=== PATIENT | male | born 1960 | race Caucasian/White ===

== ENCOUNTER 2021-04-24 07:19 | Day surgery (SDC) | payer MEDICAID, SELFPAY ==
[~2021-04-24] VITALS: Ht 177.8 cm; Wt 79.4 kg
[2021-04-24] MEDS ORDERED: MIDAZOLAM HCL 5 MG/5 ML VIAL ONE ×2 (08:36→10:49)
[2021-04-24] MEDS ORDERED: SIMETHICONE 40 MG/0.6 ML ML ONE (08:36)
[2021-04-24] MEDS ORDERED: fentaNYL CITRATE/PF 100 MCG/2 ML AMP ONE (08:36)
[2021-04-24] MEDS ORDERED: MEPERIDINE 100 MG INJ. 100 MG/ML VIAL ONE (10:41)
[2021-04-24] MEDS ORDERED: EPINEPHrine JECT 0.1 MG/ML SYR ONE (13:15)
[2021-04-24 15:01] VITALS: BP_SYST 139
== END 2021-04-24 12:25 | disposition home or self-care (01) ==
LOC: SDS 07:19 → SMU 07:21 → SDS 12:25
PROVIDERS: ATTEND Internal Medicine Gastroenterology
DX: K92.1 Melena (principal); D12.2 Benign neoplasm of ascending colon; D12.3 Benign neoplasm of transverse colon; K62.1 Rectal polyp; K64.4 Residual hemorrhoidal skin tags; Z80.0 Family history of malignant neoplasm of digestive organs; I10 Essential (primary) hypertension; E11.9 Type 2 diabetes mellitus without complications; E78.00 Pure hypercholesterolemia, unspecified; Z87.891 Personal history of nicotine dependence; Z79.84 Long term (current) use of oral hypoglycemic drugs; Z79.899 Other long term (current) drug therapy; Z20.822 Contact with and (suspected) exposure to COVID-19
CPT/HCPCS: 45381; 45385; 82962; 88305; 99152; 99153; G0378; J0171; J2175; J2250; U0003; 45384; J3010

== ENCOUNTER 2021-08-03 09:10 | Inpatient (IN) | payer MEDICAID, SELFPAY ==
[2021-08-02 07:57] LABS: BASOPHILS % (AUTO) 0.5 % (0.0-2.0); EOSINOPHILS # (AUTO) 0.2 K/uL (0.0-0.4); HEMATOCRIT 41.5 % (36-54); HEMOGLOBIN 13.8 g/dL (14.0-18.0); LYMPHOCYTES # (AUTO) 1.8 K/uL (1.0-5.5); LYMPHOCYTES % (AUTO) 21.7 % (20.5-51.5); MEAN CORPUSCULAR HEMOGLOBIN 28 pg (27-31); MEAN CORPUSCULAR HGB CONC 33 % (32-36); MEAN CORPUSCULAR VOLUME 84 fL (79.0-98.0); MONOCYTES # (AUTO) 0.7 K/uL (0.0-1.0); MONOCYTES % (AUTO) 8.8 % (1.7-9.3); NEUTROPHILS # (AUTO) 5.4 K/uL (1.8-7.7); PLATELET COUNT (AUTO) 119 K/uL (130-430); RED BLOOD CELL COUNT(AUTO) 4.93 MIL/uL (4.2-6.2); RED CELL DISTRIBUTION WIDTH 15.6 % (9.0-15.0); WHITE BLOOD COUNT (AUTO) 8.2 K/uL (4.8-10.8)
[2021-08-02 08:36] LABS: CREATININE 1.09 mg/dL (0.55-1.30); POTASSIUM 4.3 mmol/L (3.5-5.1)
[~2021-08-03] VITALS: Ht 177.8 cm; Wt 124.7 kg
[2021-08-03] MEDS ORDERED: BUPIVACAINE LIPOSOME/PF 266 MG/20 ML VIAL INFIL ONE (12:55)
[2021-08-03] MEDS ORDERED: LISI10TA29 PO (14:00)
[2021-08-03] MEDS ORDERED: METF-518 PO (14:00)
[2021-08-03] MEDS ORDERED: GLIP5TAB26 PO (14:01)
[2021-08-03] MEDS ORDERED: LIP20 PO (14:02)
[2021-08-03] MEDS ORDERED: metroNIDAZOLE 500 mg/NS 100 ML IV ONE (14:30)
[2021-08-03] MEDS ORDERED: LEVOFLOXACIN IN DEXTROSE 5 % 100 ML IV ONE (14:30)
[2021-08-03] MEDS ORDERED: CEFAZOLIN 2 GM IVPB PREMIX 50 ML IV ONE (14:30)
[2021-08-03] MEDS ORDERED: fentaNYL CITRATE/PF 100 MCG/2 ML AMP IVP PRN (15:30)
[2021-08-03] MEDS ORDERED: METOCLOPRAMIDE HCL 10 MG/2 ML VIAL IVP PRN (15:30)
[2021-08-03] MEDS ORDERED: ONDANSETRON HCL 4 MG/2 ML VIAL IVP PRN ×2 (15:30→19:00)
[2021-08-03] MEDS ORDERED: PROPOFOL 200MG/ 20ML VIAL (DIPRIVAN) IV ONE (19:05)
[2021-08-03] MEDS ORDERED: INDIGOTINDISULFONATE SODIUM ONE (19:05)
[2021-08-03] MEDS ORDERED: SEVOFLURANE 15 MIN GAS INH ONE (19:05)
[2021-08-03] MEDS ORDERED: HYDROmorphone 2 MG/ML VIAL ONE (19:05)
[2021-08-03] MEDS ORDERED: ROCURONIUM BROMIDE 10 MG/ML (ZEMURON) ONE (19:05)
[2021-08-03] MEDS ORDERED: LR 1,000 ML IV.SOLN IV ONE (19:05)
[2021-08-03] MEDS ORDERED: SUCCINYLCHOLINE CHLORIDE 20 MG/ML(QUELICIN) ONE (19:05)
[2021-08-03] MEDS ORDERED: fentaNYL CITRATE/PF 100 MCG/2 ML AMP ONE ×2 (19:09→19:48)
[2021-08-03] MEDS: fentaNYL CITRATE/PF 100 MCG/2 ML AMP IVP PRN ×3 (19:13→19:48)
[2021-08-03] MEDS: GABAPENTIN 300 MG CAPSULE PO SCH (21:06)
[2021-08-03] MEDS: ACETAMINOPHEN 500 MG TABLET PO SCH (21:07)
[2021-08-03] MEDS: metroNIDAZOLE 500 mg/NS 100 ML IV SCH (21:07)
[2021-08-03] MEDS: ceFAZolin SODIUM 1 GM in D5W 50 ML IV SCH (21:28)
[2021-08-03 21:47] VITALS: BP_SYST 123
[2021-08-03] MEDS: HYDROmorphone 1 MG/ML INJ. CARTRIDGE IVP PRN (21:53)
[2021-08-04 00:22] VITALS: BP_SYST 110
[2021-08-04] MEDS: HYDROmorphone 1 MG/ML INJ. CARTRIDGE IVP PRN ×3 (02:09→15:52)
--- NOTE | 2021-08-04 03:18 | NUR ---
Admission Note Received patient with diagnosis of POLYP OF COLON. Initial Plan of Care discussed-patient verbalized understanding. at bedside. Oriented to room, call light, pain management and safety.
[2021-08-04] MEDS: ceFAZolin SODIUM 1 GM in D5W 50 ML IV SCH ×3 (06:11→13:41)
[2021-08-04] MEDS: metroNIDAZOLE 500 mg/NS 100 ML IV SCH ×3 (06:12→22:23)
[2021-08-04] MEDS: ACETAMINOPHEN 500 MG TABLET PO SCH ×3 (06:13→17:09)
--- NOTE | 2021-08-04 07:15 | NUR ---
DR YEPEZ WANTS MCLEAN OUT DESPITE ORDERS OF REMOVAL AT 0900 Dr. Yepez visited patient and wanted ALIVIA drain removed now. Dr. Yepez said he wanted it removed at 0600. Dr. Yepez was corrected by ARMANDO Pablo ordered specified 0900. Dr. Yepez disagreed. States to remove at 0600. Will remove.
--- NOTE | 2021-08-04 07:30 | NUR ---
Dr. Nguyễn here to see patient. Order to dc pham catheter, insulin sliding scale and resume home meds except diabetic meds. PT is awake alert and oriented x4, vs stable, nsr on tele, no acute distress noted. Assuming care for pt.
--- NOTE | 2021-08-04 07:58 | NUR ---
MCLEAN CATH REMOVED AT THIS TIME. ALIVIA drain emptied.
[2021-08-04 08:00] VITALS: BP_SYST 124
--- NOTE | 2021-08-04 08:00 | NUR ---
CLOSING NOTES Patient resting in bed - no s/s pain or distress noted. Respirations even and unlabored - head of bed elevated. IV site patent - no s/ s redness, infection, or infiltration. Bed locked and in lowest position. Call light within reach - bed alarm on.
[2021-08-04] MEDS: HYDROcodone/ACETAMIN 5-325 MG TAB (NORCO/ VICODIN) PO PRN ×3 (09:09→21:07)
[2021-08-04] MEDS: GABAPENTIN 300 MG CAPSULE PO SCH ×3 (09:09→21:05)
[2021-08-04] MEDS: ENOXAPARIN SODIUM 40 MG/0.4 ML SYRINGE SUBCUT SCH (09:10)
[2021-08-04 09:16] LABS: BASOPHILS % (AUTO) 0.2 % (0.0-2.0); EOSINOPHILS % (AUTO) 0.3 % (0.0-4.0); HEMATOCRIT 38.4 % (36-54); LYMPHOCYTES # (AUTO) 1.2 K/uL (1.0-5.5); LYMPHOCYTES % (AUTO) 12.4 % (20.5-51.5); MEAN CORPUSCULAR HEMOGLOBIN 29 pg (27-31); MEAN CORPUSCULAR HGB CONC 34 % (32-36); MEAN CORPUSCULAR VOLUME 85 fL (79.0-98.0); MONOCYTES # (AUTO) 0.9 K/uL (0.0-1.0); MONOCYTES % (AUTO) 8.6 % (1.7-9.3); NEUTROPHILS # (AUTO) 7.9 K/uL (1.8-7.7); NEUTROPHILS % (AUTO) 78.5 % (40.0-70.0); PLATELET COUNT (AUTO) 126 K/uL (130-430); RED BLOOD CELL COUNT(AUTO) 4.51 MIL/uL (4.2-6.2); RED CELL DISTRIBUTION WIDTH 15.2 % (9.0-15.0); WHITE BLOOD COUNT (AUTO) 10.1 K/uL (4.8-10.8)
[2021-08-04 09:42] LABS: CALCIUM 8.9 mg/dL (8.4-11.0); CREATININE 1.17 mg/dL (0.55-1.30); POTASSIUM 4.4 mmol/L (3.5-5.1)
[2021-08-04] MEDS ORDERED: GLUCOSE (DEXTROSE) ORAL GEL -Adults PO PRN (10:00)
[2021-08-04] MEDS ORDERED: D5W 1,000 ML IV PRN (10:00)
[2021-08-04] MEDS ORDERED: DEXTROSE 50% JECT 50 ML DISP.SYRIN IVP PRN (10:00)
[2021-08-04] MEDS ORDERED: ATORVASTATIN 20 MG TABLET PO ONE (11:00)
[2021-08-04 11:32] VITALS: BP_SYST 125
--- NOTE | 2021-08-04 15:00 | NUR ---
Spoke to Dr. Nguyễn and informed that pt has not voided much. Pt has burning sensation with urination. order received.
[2021-08-04 15:41] VITALS: BP_SYST 139
--- NOTE | 2021-08-04 17:00 | NUR ---
Pt has been stable, no acute cardiac or respiratory distress. Heart monitor d/camilo as per criteria protocol. Per rn charge Zeny, pt does not meet criteria to be on tele. Pt has been nsr. Patient has been walking around the room, sat up on chair, tolerating diet, denies any nausea or vomiting. Educated pt the importance of activity such as getting oob, walking around the room. Absent bowel tones and pt to report when he passes gas. Made aware he may have soft diabetic diet as tolerated when he passes gas. Use of incentive spirometer encourage. Pt able to do 2000cc every hour. Puncture sites with dermabond, well approximated, clean, dry and intact. ALIVIA drain 40cc serosanguineous total out put in 12 hours. Bladder scanned pt with 245 cc and pt able to void with 100cc of rocco urine. Pt states that he will try again later. Pt states no more burning with urination but not much urge to urinate.
[2021-08-04 20:00] VITALS: BP_SYST 130
--- NOTE | 2021-08-04 21:33 | NUR ---
RECEIVED PT LYING IN BED, NO DISTRESS NOTED, DENIES PAIN, MINIMAL AMOUNT OF DRY BLOODY DRAINAGE AROUND ALIVIA SITE, CLEANED WITH NS CLEAN DRSG APPLIED. 4 ABD LAP SITES CDI. ALIVIA 5 ML BLOOD DRAINAGE, 150ML CLEAR TEA COLORED URINE. Addendum: 08/05/21 at 0010 by [employer] am[employer] analyst 2130: PT STATED HE AMBULATED TO BATHROOM AND VOIDED. I ASKED TO PLEASE USE URINAL TO WE CAN MEASURE HIS URINE. 2244: VOIDED 100ML TEA COLORED URINE, POST VOID BLADDER SCAN 92ML Addendum: 08/05/21 at 0641 by [employer] am[employer] analyst 0200: ENCOURAGED TO DRINK MORE FLUIDS, FRESH PITCHERS OF WATER GIVEN. ENCOURAGED USING THE INCENTIVE SPIROMETER 0430: ALIVIA DRSG CDI, MINIMAL OUTPUT FROM ALIVIA. 0630: PT RESTING, NO DISTRESS NOTED. PT CURRENTLY WITH GOOD UO.
[2021-08-05 00:27] VITALS: BP_SYST 133
[2021-08-05 04:30] VITALS: BP_SYST 150
[2021-08-05 07:01] LABS: CALCIUM 8.8 mg/dL (8.4-11.0); CREATININE 1.03 mg/dL (0.55-1.30); POTASSIUM 3.7 mmol/L (3.5-5.1)
--- NOTE | 2021-08-05 07:20 | NUR ---
rn opening note report was endorsed by night nurse. patient is awake and alert sitting up in bed. no complaints at this time. call light is with him, educated to use for assistance.
[2021-08-05 07:55] LABS: BASOPHILS % (AUTO) 0.3 % (0.0-2.0); EOSINOPHILS # (AUTO) 0.1 K/uL (0.0-0.4); EOSINOPHILS % (AUTO) 0.7 % (0.0-4.0); HEMATOCRIT 37.3 % (36-54); HEMOGLOBIN 12.7 g/dL (14.0-18.0); LYMPHOCYTES # (AUTO) 1.1 K/uL (1.0-5.5); LYMPHOCYTES % (AUTO) 12.2 % (20.5-51.5); MEAN CORPUSCULAR HEMOGLOBIN 29 pg (27-31); MEAN CORPUSCULAR HGB CONC 34 % (32-36); MEAN CORPUSCULAR VOLUME 85 fL (79.0-98.0); MONOCYTES % (AUTO) 10.6 % (1.7-9.3); NEUTROPHILS % (AUTO) 76.2 % (40.0-70.0); PLATELET COUNT (AUTO) 115 K/uL (130-430); RED BLOOD CELL COUNT(AUTO) 4.39 MIL/uL (4.2-6.2); RED CELL DISTRIBUTION WIDTH 15.6 % (9.0-15.0); WHITE BLOOD COUNT (AUTO) 9.2 K/uL (4.8-10.8)
[2021-08-05 08:24] VITALS: BP_SYST 149
[2021-08-05] MEDS: GABAPENTIN 300 MG CAPSULE PO SCH ×3 (08:32→21:39)
[2021-08-05] MEDS: LISINOPRIL 10 MG TABLET (PRINIVIL) PO SCH (08:33)
[2021-08-05] MEDS: ATORVASTATIN 20 MG TABLET PO SCH (08:33)
[2021-08-05] MEDS: ENOXAPARIN SODIUM 40 MG/0.4 ML SYRINGE SUBCUT SCH (08:35)
--- NOTE | 2021-08-05 08:39 | NUR ---
medication patients scheduled medication given per order. patient is awake and alert sitting up in chair at bedside eating lunch. patient educated diamond cutter light for assistance. patient complains of head ache does not want prescribed pain medication is requesting tylenol, Addendum: 08/05/21 at 1447 by Gita Michael RN dr. orozco at bedside, informed of Tylenol wants the Tylenol as achs, ok to give now, was not given at 0700. states ok to advance diet to soft just not to eat meat even though patient is not passing gas. he has told the patient to just take it slow.
[2021-08-05] MEDS: ACETAMINOPHEN 500 MG TABLET PO SCH ×4 (08:46→21:39)
[2021-08-05 11:27] VITALS: BP_SYST 144
--- NOTE | 2021-08-05 15:07 | NUR ---
medication patients scheduled medication given per order. patient is awake and alert sitting up in bed. spouse is at bedside. call light is with him educated to use for assistance. no other needs at this time.
[2021-08-05 15:38] VITALS: BP_SYST 150
--- NOTE | 2021-08-05 16:19 | NUR ---
BOWEL MOVEMENT PATIENT STATES HE IS HAD A BOWEL MOVEMENT, LOOSE. HE STATES HE CAN FEEL WHAT HE ATE MOVING THROUGH HIM. PATIENT EDUCATED DEPARTMENT STORE GENERAL MANAGER LIGHT FOR ASSISTANCE. CALL LIGHT IS WITH HIM. PATIENT HAS SPOUSE AT BEDSIDE.
--- NOTE | 2021-08-05 17:18 | NUR ---
medication/accu check patients accu check done, no coverage needed.scheduled medication given per order. Patient is awake and alert all safety precautions in place. call light is with him provided with ice and ice water as requested.
--- NOTE | 2021-08-05 18:36 | NUR ---
RN closing note patient is awake and alert laying in bed no signs of any distress, breathing is equal and non labored. educated on IS able to inspire 3250. ALIVIA drained emptied bright red blood, 38ml. Patient has no complaints at this time. was able to pick at dinner didnt want to overdo it. educated to use call light for assistance. spouse is at bedside. patient is ambulating in room gait is steady.
[2021-08-05 19:40] VITALS: BP_SYST 126
--- NOTE | 2021-08-05 19:40 | NUR ---
PM ASSESSMENT -Pt is a/ox4, denies any chest pain,pain,sob,or any acute distress. surgical site w/ duobond cdi w/ ALIVIA x1 drains pinkish drainage w/ gravity in place. BS present. Lung sounds clear throughout. pt is able to ambulate w/ slow steady gaits w/o any difficulty. Discussed poc,all safety measures, pain mgmt, pt verbalized understanding. Call light w/in reach. All safety measures in place. Continuing to monitor pt.
--- NOTE | 2021-08-05 21:39 | NUR ---
NOTES; -pt laying in bed. Pt denies any chest pain,pain,sob, or any acute distress. blood sugar WNL,no ssi coverage given, gave all routine po meds. JPX1 is still draining pinkish drainage. All safety measures in place. Call light w/in reach. continuing to monitor pt.
--- NOTE | 2021-08-05 23:44 | NUR ---
ROUNDS; -pt is laying in bed. NO s/s any pain,sob,or any acute distress noted. All safety measures in place. Call light w/in reach. Continue to monitor pt.
[2021-08-06] VITALS: BP_SYST 136
--- NOTE | 2021-08-06 00:11 | NUR ---
ROUNDS; -pt is laying in bed, awoke upon making rounds. pt denies any pain,sob,or any acute distress noted. VSS. All safety measures in place. Call light w/in reach. Continue to monitor pt.
--- NOTE | 2021-08-06 02:15 | NUR ---
ROUNDS; -pt is asleep. No s/s any pain,sob,or any acute distress noted. All safety measures in place. Call light w/in reach. Continue to monitor pt.
--- NOTE | 2021-08-06 04:13 | NUR ---
ROUNDS; -pt is asleep. No s/s any pain,sob,or any acute distress noted. All safety measures in place. Call light w/in reach. Continue to monitor pt.
[2021-08-06] MEDS: ACETAMINOPHEN 500 MG TABLET PO SCH ×4 (06:06→20:35)
--- NOTE | 2021-08-06 06:08 | NUR ---
ROUNDS; -pt denies any pain,sob,or any acute distress. Gave Tylenol po routine. GO=[id number],no ssi coverage. Emptied JPx1-10ml pinkish drainage. All safety measures in place. Call light w/in reach. Continue to monitor pt.
--- NOTE | 2021-08-06 06:41 | NUR ---
CLOSING NOTES; -Pt denies any pain,sob,or any acute distress. IV site patent drsg cdi. surgical site of mid lower abd w/ x4 punctures w/ duobonds cdi w/ jpx1 w/ gravity. All safety measures in place. Call light w/in reach.Will endorse to next nurse to cont care.
--- NOTE | 2021-08-06 06:58 | NUR ---
NOTES-Updates status of patient condition regarding total of ALIVIA=10ml, x2 bowel movt, pt didn't complain of anytime entire shift, BS WNL, VSS afebrile. stated," possible discharge tomorrow." will endorse to next nurse to check new order.
[2021-08-06 08:00] VITALS: BP_SYST 136
[2021-08-06 08:01] LABS: CALCIUM 9.2 mg/dL (8.4-11.0); CREATININE 1.07 mg/dL (0.55-1.30); POTASSIUM 3.7 mmol/L (3.5-5.1)
[2021-08-06 08:02] LABS: BASOPHILS % (AUTO) 0.2 % (0.0-2.0); EOSINOPHILS # (AUTO) 0.2 K/uL (0.0-0.4); EOSINOPHILS % (AUTO) 1.8 % (0.0-4.0); HEMATOCRIT 39.1 % (36-54); HEMOGLOBIN 13.2 g/dL (14.0-18.0); LYMPHOCYTES # (AUTO) 1.1 K/uL (1.0-5.5); LYMPHOCYTES % (AUTO) 9.5 % (20.5-51.5); MEAN CORPUSCULAR HEMOGLOBIN 29 pg (27-31); MEAN CORPUSCULAR HGB CONC 34 % (32-36); MEAN CORPUSCULAR VOLUME 85 fL (79.0-98.0); MONOCYTES % (AUTO) 8.8 % (1.7-9.3); NEUTROPHILS # (AUTO) 9.1 K/uL (1.8-7.7); NEUTROPHILS % (AUTO) 79.7 % (40.0-70.0); PLATELET COUNT (AUTO) 134 K/uL (130-430); RED BLOOD CELL COUNT(AUTO) 4.61 MIL/uL (4.2-6.2); RED CELL DISTRIBUTION WIDTH 15.7 % (9.0-15.0); WHITE BLOOD COUNT (AUTO) 11.4 K/uL (4.8-10.8)
[2021-08-06] MEDS: ATORVASTATIN 20 MG TABLET PO SCH (09:38)
[2021-08-06] MEDS: LISINOPRIL 10 MG TABLET (PRINIVIL) PO SCH (09:38)
[2021-08-06] MEDS: GABAPENTIN 300 MG CAPSULE PO SCH ×3 (09:38→20:34)
[2021-08-06] MEDS: ENOXAPARIN SODIUM 40 MG/0.4 ML SYRINGE SUBCUT SCH (09:39)
[2021-08-06 11:34] VITALS: BP_SYST 157
[2021-08-06] MEDS: HYDROcodone/ACETAMIN 5-325 MG TAB (NORCO/ VICODIN) PO PRN (11:52)
[2021-08-06 15:33] VITALS: BP_SYST 118
--- NOTE | 2021-08-06 16:46 | NUR ---
Pt had 3 bms today. Pt is seen ambulating in the room and using incentive spirometry. Pt with adequate pain control.
[2021-08-06] MEDS: HYDROmorphone 1 MG/ML INJ. CARTRIDGE IVP PRN ×2 (18:15→21:53)
--- NOTE | 2021-08-06 18:50 | NUR ---
Family at the bedside, updated on pt's condition.
--- NOTE | 2021-08-06 19:30 | NUR ---
CHANGE OF SHIFT REPORT RECEIVED FROM DAYSHIFT: PT RECEIVED AWAKE IN BED. STATUS POST LAPAROSCOPIC RIGHT COLECTOMY (ROBOTIC ASSIST) PER DR YEPEZ ON 08/06/21 WITH DX OF COLON POLYP AND CHIEF C/O OF ABD. PAIN AND N/V. ENDORSED: PT POSS. DISCHARGE TOMORROW MD OFFERED PT TO GO HOME TODAY BUT PT PREFERRED TO STAY ANOTHER DAY. DAISY ACUÑA DRAIN WITH 10 MLS BRIGHT RED DRAINAGE. PT AMBULATORY FREQUENTLY AND MOVING ABOUT INDEPENDENTLY. ROOM AIR. INCISION/PUNCTURE SITES X4 GUNJAN CDI/BENIGN. SMALL 4X4 DRESSING AT ALIVIA SITE. R HAND 20 G SL. LAST MEDICATED WITH DILAUDID 1 MG AT APPROX.1800 AND NORCO 1 TAB AT APPROX NOON. GOOD DAY. ASSUMED CARE OF PT AT THIS TIME.
[2021-08-06 20:00] VITALS: BP_SYST 153
[2021-08-06] MEDS: INSULIN LISPRO SLIDING SCALE 100 UNITS/ML VIAL (humaLOG) SUBCUT PRN (22:09)
[2021-08-07 04:00] VITALS: BP_SYST 138
--- NOTE | 2021-08-07 07:30 | NUR ---
ABDOMINAL RELIEF! "I FEEL LIKE A NEW MAN...AFTER YOU WALKED OUT THE LAST TIME I WENT TO THE BATHROOM AND I RELEASED A LOT OF BM AND GAS. I FEEL UNBELIEVABLE! I'M READY TO GO HOME NOW!" PT OBSERVED SITTING UP IN CHAIR LITERALLY SMILING! RELINQUISHED CARE OF PT
--- NOTE | 2021-08-07 07:30 | NUR ---
HANDOFF REPORT TO DAY SHIFT NURSE.
[2021-08-07] MEDS: INSULIN LISPRO SLIDING SCALE 100 UNITS/ML VIAL (humaLOG) SUBCUT PRN ×3 (07:56→17:07)
[2021-08-07 08:00] VITALS: BP_SYST 143
--- NOTE | 2021-08-07 08:00 | NUR ---
PATIENT IN BED, NO S/S OF DISTRESS, A/OX4, AMBULATORY, NO PAIN REPORTED, PT STATES HIS PAIN HAS IMPROVED, 4 PUNCTURE SITES ON ABDOMEN FROM LAPAROSCOPIC CHOLECYSTECTOMY ARE CLEAN DRY AND INTACT WITH DERMABOND IN PLACE, ANTERIOR LOWER MEDIAL ABDOMEN DRESSING CLEAN DRY AND INTACT WITH ALIVIA DRAINING, ALIVIA DRAIN EMPTIED WITH 5ML OF SEROSANGUINEOUS FLUID OUT, EATING AND TOLERATING DIET WELL, PATIENT HAS HAD A BOWEL MOVEMENT SINCE SURGERY AND IS PASSING GAS, BED IN LOWEST LOCKED POSITION, CALL LIGHT WITHIN REACH, SAFETY MEASURES IN PLACE, WILL CONTINUE TO MONITOR.
[2021-08-07 08:11] LABS: BASOPHILS % (AUTO) 0.4 % (0.0-2.0); EOSINOPHILS # (AUTO) 0.3 K/uL (0.0-0.4); HEMATOCRIT 39.5 % (36-54); HEMOGLOBIN 13.6 g/dL (14.0-18.0); LYMPHOCYTES # (AUTO) 1.2 K/uL (1.0-5.5); LYMPHOCYTES % (AUTO) 11.6 % (20.5-51.5); MEAN CORPUSCULAR HEMOGLOBIN 29 pg (27-31); MEAN CORPUSCULAR HGB CONC 34 % (32-36); MEAN CORPUSCULAR VOLUME 85 fL (79.0-98.0); MONOCYTES # (AUTO) 0.8 K/uL (0.0-1.0); MONOCYTES % (AUTO) 7.3 % (1.7-9.3); NEUTROPHILS # (AUTO) 8.4 K/uL (1.8-7.7); NEUTROPHILS % (AUTO) 77.7 % (40.0-70.0); PLATELET COUNT (AUTO) 153 K/uL (130-430); RED BLOOD CELL COUNT(AUTO) 4.67 MIL/uL (4.2-6.2); RED CELL DISTRIBUTION WIDTH 15.5 % (9.0-15.0); WHITE BLOOD COUNT (AUTO) 10.8 K/uL (4.8-10.8)
[2021-08-07] MEDS: GABAPENTIN 300 MG CAPSULE PO SCH ×2 (09:00→15:50)
[2021-08-07] MEDS: LISINOPRIL 10 MG TABLET (PRINIVIL) PO SCH (09:00)
[2021-08-07] MEDS: ATORVASTATIN 20 MG TABLET PO SCH (09:00)
[2021-08-07] MEDS: ENOXAPARIN SODIUM 40 MG/0.4 ML SYRINGE SUBCUT SCH (09:01)
[2021-08-07] MEDS: ACETAMINOPHEN 500 MG TABLET PO SCH ×2 (11:30→16:59)
[2021-08-07 12:00] VITALS: BP_SYST 136
[2021-08-07 16:38] VITALS: BP_SYST 124
[2021-08-07 18:09] VITALS: BP_SYST 124
--- NOTE | 2021-08-07 19:24 | NUR ---
PATIENT DISCHARGED, DISCHARGE PACKET PRINTED, REVIEWED, SIGNED, IN CHART, COPY WITH PATIENT. IVs REMOVED AND GAUZE APPLIED, WRIST BAND REMOVED, ALL BELONGINGS WITH PATIENT AT DISCHARGE, STABLE AT TIME OF DISCHARGE, FOLLOW UP APPOINTMENT SCHEDULED WITH DR YEPEZ, TAKEN TO CAR IN WHEEL CHAIR WHERE PICKED UP BY , VOICED UNDERSTANDING OF POST OP EDUCATION AND CARE, TOLERATED DISCHARGE WELL.
== END 2021-08-07 19:24 | disposition home or self-care (01) | DRG 231 ==
LOC: SMU 10:27 → STU 19:34 → SMU 08-04 13:13
PROVIDERS: ADMIT Surgery; ATTEND Surgery
PROC: 8E0W4CZ Robotic Assisted Procedure of Trunk Region, Percutaneous Endoscopic Approach (ICD-10-PCS; 2021-08-03)
PROC: 0DBF4ZZ Excision of Right Large Intestine, Percutaneous Endoscopic Approach (ICD-10-PCS; principal; 2021-08-03 12:30)
DX: C18.2 Malignant neoplasm of ascending colon (principal); K63.5 Polyp of colon; Z20.822 Contact with and (suspected) exposure to COVID-19; Z79.84 Long term (current) use of oral hypoglycemic drugs; Z79.899 Other long term (current) drug therapy
CPT/HCPCS: 36415; 80048; 82962; 85025; 87081; 88307; C9290; G0378; J0330; J0690; J1170; J1650; J1956; J2704; J3010; J3490; J7060; J7120; U0003

== ENCOUNTER 2023-01-22 16:32 | Emergency (ER) | payer MEDICAID ==
[~2023-01-22] VITALS: Ht 177.8 cm; Wt 120.2 kg
[~2023-01-22 16:32] MED LIST: GLIP5TAB26 PO; LIP20 PO; LISI10TA29 PO; METF-518 PO
[2023-01-22 16:37] VITALS: BP_SYST 122; PULSE 96; RESP 18; TEMP 97.1; O2SAT 98
[2023-01-22] MEDS ORDERED: NACL 0.9% 1,000 ML IV ONE ×2 (17:15→18:30)
[2023-01-22 17:29] LABS: BASOPHILS % (AUTO) 0.2 % (0.0-2.0); EOSINOPHILS # (AUTO) 0.2 K/uL (0.0-0.4); EOSINOPHILS % (AUTO) 1.1 % (0.0-4.0); HEMATOCRIT 41.4 % (36-54); HEMOGLOBIN 13.7 g/dL (14.0-18.0); LYMPHOCYTES # (AUTO) 1.7 K/uL (1.0-5.5); LYMPHOCYTES % (AUTO) 11.3 % (20.5-51.5); MEAN CORPUSCULAR HEMOGLOBIN 30 pg (27-31); MEAN CORPUSCULAR HGB CONC 33 % (32-36); MEAN CORPUSCULAR VOLUME 91 fL (79.0-98.0); MONOCYTES # (AUTO) 0.8 K/uL (0.0-1.0); MONOCYTES % (AUTO) 5.2 % (1.7-9.3); NEUTROPHILS # (AUTO) 12.6 K/uL (1.8-7.7); NEUTROPHILS % (AUTO) 82.2 % (40.0-70.0); PLATELET COUNT (AUTO) 122 K/uL (130-430); RED BLOOD CELL COUNT(AUTO) 4.58 MIL/uL (4.2-6.2); RED CELL DISTRIBUTION WIDTH 13.9 % (9.0-15.0); WHITE BLOOD COUNT (AUTO) 15.3 K/uL (4.8-10.8)
[2023-01-22 17:50] LABS: PROTHROMBIN TIME 10.8 SECS (9.5-12.5)
[2023-01-22 17:51] LABS: CALCIUM 8.9 mg/dL (8.4-11.0); CREATININE 1.39 mg/dL (0.55-1.30); POTASSIUM 3.9 mmol/L (3.5-5.1)
[2023-01-22 17:56] LABS: ALBUMIN 3.2 g/dL (3.4-4.8); TOTAL BILIRUBIN 0.4 mg/dL (0.0-1.0); TOTAL PROTEIN, SERUM 6.6 g/dL (6.4-8.3)
[2023-01-22] MEDS ORDERED: fentaNYL CITRATE/PF 100 MCG/2 ML AMP IVP ONE (21:30)
[2023-01-22] MEDS ORDERED: ACET325T53 PO (22:17)
[2023-01-22] MEDS ORDERED: OMEP40CA20 PO (22:17)
[2023-01-22 23:15] VITALS: BP_SYST 169; PULSE 70; RESP 16; TEMP 97.4; O2SAT 97
== END 2023-01-22 23:15 | disposition home or self-care (01) ==
LOC: SED 16:32
DX: K62.5 Hemorrhage of anus and rectum (principal); D17.30 Benign lipomatous neoplasm of skin and subcutaneous tissue of unspecified sites; R53.1 Weakness; E11.9 Type 2 diabetes mellitus without complications; I10 Essential (primary) hypertension; Z79.899 Other long term (current) drug therapy
CPT/HCPCS: 99284; 74176; 96360; 80053; 85025; 85610; 85730; 86886; 86900; 86901; 36415; 76376; J3010; J7030